=== PATIENT | female | born 1965 | race Caucasian/White ===

== ENCOUNTER 2018-09-27 19:11 | Emergency (ER) | payer SELFPAY ==
[2018-09-27 20:13] LABS: Absolute Lymphocytes (CBC) 1.4 K/uL (0.7-4.9); Absolute Monocytes 0.6 K/uL (0.1-1.3); Absolute Neutrophil 4.2 K/uL (1.8-8.0); Hematocrit 42.9 % (36.0-45.0); Lymphocytes % 22.2 % (15.3-44.8); MCH 30.3 pg (27.0-35.0); MCV 89.1 fL (80-100); MPV 8.3 fL (7.6-11.3); RBC Red Blood Cell Count 4.81 M/uL (3.86-4.86)
[2018-09-27 20:30] LABS: Albumin 3.7 g/dL (3.4-5.0); Bilirubin Total 0.2 mg/dL (0.2-1.0); Magnesium 2.3 mg/dL (1.8-2.4); Potassium 3.6 mmol/L (3.5-5.1); Protein, Total 7.6 g/dL (6.4-8.2)
[2018-09-27 20:54] LABS: Urine Blood NEGATIVE (NEG); Urine Glucose NEGATIVE (NEG); Urine Protein NEGATIVE (NEG); Urine Specific Gravity 1.015 (1.005-1.030); Urine pH 5.5 (5.0-7.0)
--- NOTE | 2018-09-27 22:47 | EDPHYS ---
Physician Documentation [facility] Name: Merry Castillo Age: 52 yrs Sex: Female : 1965 Arrival Date: 09/27/2018 Time: 19:13 Bed 19 Private MD: ED Physician Vasu Rosas HPI: 09/27 19:55 This 52 yrs old Female presents to ER via Ambulatory with complaints of ps1 Numbness, Dizziness. 19:56 Patient lives in [place] and is a NIDDM presenting with paresthesias in upper and lower ps1 extremities bilaterally. Has a history of peripheral neuropathy. Onset was this morning upon awakening. Has not followed up with PCP in about a year and is taking metformin bid, however does not check BS and has not had A1c in over a year. Has increased DM symptoms. Additionally MJ use, current and recent 2/2 aroma in room. . 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 - Social history:: Smoking status: Patient uses tobacco products, smokes one pack cigarettes per day. Patient uses alcohol, only on a social basis. street drugs, marijuana. - Ebola Screening: : Patient negative for fever greater than or equal to 101.5 degrees Fahrenheit, and additional compatible Ebola Virus Disease symptoms Patient denies exposure to infectious person Patient denies travel to an Ebola-affected area in the 21 days before illness onset No symptoms or risks identified at this time. ROS: 19:56 Constitutional: Negative for fever, chills, and weight loss, Eyes: Negative for injury, ps1 pain, redness, and discharge, Cardiovascular: Negative for chest pain, palpitations, and edema, Respiratory: Negative for shortness of breath, cough, wheezing, and pleuritic chest pain, Abdomen/GI: Negative for abdominal pain, nausea, vomiting, diarrhea, and constipation, : Negative for injury, bleeding, discharge, and swelling, MS/Extremity: Negative for injury and deformity, Skin: Negative for injury, rash, and discoloration. 19:56 Neuro: Positive for paresthesia. Exam: 19:56 Constitutional: This is a well developed, well nourished patient who is awake, alert, ps1 and in no acute distress. Head/Face: Normocephalic, atraumatic. Eyes: Pupils equal round and reactive to light, extra-ocular motions intact. Lids and lashes normal. Conjunctiva and sclera are non-icteric and not injected. Chest/axilla: Normal chest wall appearance and motion. Nontender with no deformity. No lesions are appreciated. Cardiovascular: Regular rate and rhythm. No gallops, murmurs, or rubs. Normal PMI, no JVD. No pulse deficits. Respiratory: Lungs have equal breath sounds bilaterally, clear to auscultation and percussion. No rales, rhonchi or wheezes noted. No increased work of breathing, no retractions or nasal flaring. Abdomen/GI: Soft, non-tender, with normal bowel sounds. No distension or tympany. No guarding or rebound. No evidence of tenderness throughout. MS/ Extremity: Pulses equal, no cyanosis. Neurovascular intact. Full, normal range of motion. Neuro: Awake and alert, GCS 15, oriented to person, place, time, and situation. Cranial nerves II-XII grossly intact. Sensory grossly intact. 22:49 CT study not indicated or reported. Reason for not performing CT: not ordered. Not ps1 consistent with stroke. Vital Signs: 19:24 BP 138 / 82; Pulse 76; Resp 20; Temp 97.3; Pulse Ox 100% on R/A; Weight 61.23 kg; aj Height 5 ft. 4 in. (162.56 cm); 20:10 BP 150 / 75; Pulse 62; Resp 16 S; Pulse Ox 97% on R/A; jd3 21:08 BP 144 / 69; Pulse 89; Resp 16 S; Pulse Ox 99% on R/A; jd3 21:59 BP 125 / 62; Pulse 63; Resp 15 S; Pulse Ox 97% on R/A; jd3 22:33 BP 134 / 81; Pulse 59; Resp 16 S; Pulse Ox 97% on R/A; jd3 19:24 Body Mass Index 23.17 (61.23 kg, 162.56 cm) aj MDM: 20:15 Patient medically screened. ps1 22:44 Data reviewed: vital signs, nurses notes, lab test result(s), and as a result, I will ps1 discharge patient. ED course: patients symptoms unchanged. DOC 2.2 labs. Pending A1C. Will rx gabapentin and have patient follow up with PCP for optimization of diabetic meds and further diagnostic testing. . 09/27 19:55 Order name: CBC with Diff; Complete Time: 20:44 [facility] 09/27 19:55 Order name: CMP; Complete Time: 20:44 [facility] 09/27 19:55 Order name: Hemoglobin A1c [facility] 09/27 19:55 Order name: Magnesium; Complete Time: 20:44 ps1 09/27 20:35 Order name: Urine Dipstick--Ancillary (enter results); Complete Time: 21:22 ms 09/27 22:16 Order name: Hemoglobin A1c [facility] 09/27 19:55 Order name: Urine Dipstick-Ancillary (obtain specimen); Complete Time: 20:36 [facility] 09/27 22:32 Order name: Hemoglobin A1c EDMS Administered Medications: No medications were administered Point of Care Testing: Blood Glucose: 20:09 Blood Glucose: 128 mg/dL; jd3 Ranges: Critical Glucose Levels:Adult <50 mg/dl or >400 mg/dl <40 mg/dl or >180 mg/dl Disposition: 09/27/18 22:46 Discharged to Home. Impression: Idiopathic peripheral autonomic neuropathy. - Condition is Stable. - Discharge Instructions: Peripheral Neuropathy. - Prescriptions for gabapentin 300 mg Oral capsule - take 1 capsule by ORAL route 3 times per day for 14 days; 42 capsule. - Medication Reconciliation Form, Thank You Letter, Antibiotic Education, Prescription Opioid Use form. - Follow up: Private Physician; When: As needed; Reason: Recheck today's complaints, Continuance of care, Re-evaluation by your physician. Follow up: Emergency Department; When: As needed; Reason: Worsening of condition. - Problem is new. - Symptoms are unchanged. Signatures: Dispatcher [employer] EDTereza Almanza RN RN aj Davies, Jonathon, RN RN jd3 Singer, Phillip, MD MD ps1 Corrections: (The following items were deleted from the chart) 22:58 22:46 09/27/2018 22:46 Discharged to Home. Impression: Idiopathic peripheral autonomic jd3 neuropathy. Condition is Stable. Forms are Medication Reconciliation Form, Thank You Letter, Antibiotic Education, Prescription Opioid Use. Follow up: Private Physician; When: As needed; Reason: Recheck today's complaints, Continuance of care, Re-evaluation by your physician. Follow up: Emergency Department; When: As needed; Reason: Worsening of condition. Problem is new. Symptoms are unchanged. ps1
--- NOTE | 2018-09-27 22:47 | ER ---
Nurse's Notes [facility] Name: Merry Castillo Age: 52 yrs Sex: Female : 1965 Arrival Date: 09/27/2018 Time: 19:13 Bed 19 Private MD: Diagnosis: Idiopathic peripheral autonomic neuropathy Presentation: 09/27 19:22 Presenting complaint: Patient states: Tingling and numbness to entire body that started aj at 0730 this AM when patient woke up. Patient reports sensation is bilateral and is worse when she is "just sitting". Transition of care: patient was not received from another setting of care. Onset of symptoms was September 27, 2018. Risk Assessment: Do you want to hurt yourself or someone else? Patient reports no desire to harm self or others. Initial Sepsis Screen: Does the patient meet any 2 criteria? No. Patient's initial sepsis screen is negative. Does the patient have a suspected source of infection? No. Patient's initial sepsis screen is negative. Care prior to arrival: None. 19:22 Method Of Arrival: Ambulatory 19:22 Acuity: RADHA 4 Triage Assessment: 19:24 General: Appears in no apparent distress. comfortable, Behavior is cooperative, aj anxious. Pain: Denies pain. Neuro: Level of Consciousness is awake, alert, obeys commands, Oriented to person, place, time, situation, Appropriate for age Reports paresthesias in entire body. Respiratory: Airway is patent Respiratory effort is even, unlabored, Respiratory pattern is regular, symmetrical. Derm: Skin is intact, is healthy with good turgor, Skin is pink, warm \\T\\ dry. normal. Musculoskeletal: Circulation, motion, and sensation intact. Range of motion: intact in all extremities. 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 - Social history:: Smoking status: Patient uses tobacco products, smokes one pack cigarettes per day. Patient uses alcohol, only on a social basis. street drugs, marijuana. - Ebola Screening: : Patient negative for fever greater than or equal to 101.5 degrees Fahrenheit, and additional compatible Ebola Virus Disease symptoms Patient denies exposure to infectious person Patient denies travel to an Ebola-affected area in the 21 days before illness onset No symptoms or risks identified at this time. Screenin:41 Abuse screen: Denies threats or abuse. Nutritional screening: No deficits noted. jd3 Tuberculosis screening: No symptoms or risk factors identified. Fall Risk Ambulatory Aid- None/Bed Rest/Nurse Assist (0 pts). Gait- Normal/Bed Rest/Wheelchair (0 pts) Mental Status- Oriented to own ability (0 pts). Total Peralta Fall Scale indicates No Risk (0-24 pts). Assessment: 19:35 General: Appears uncomfortable, Behavior is calm, cooperative, appropriate for age, jd3 Reports symptoms starting a week ago. Pain: Denies pain. Neuro: Level of Consciousness is awake, alert, obeys commands, Oriented to person, place, time, situation, Plan Rep are equal bilaterally Moves all extremities. Full function Gait is steady, Speech is normal, Facial symmetry appears normal, Pupils are PERRLA, Intact Reports dizziness, numbness in left hand and right leg. Cardiovascular: Capillary refill < 3 seconds Patient's skin is warm and dry. Respiratory: Airway is patent Respiratory effort is even, unlabored, Respiratory pattern is regular, symmetrical, Denies shortness of breath. GI: Abdomen is round non-distended, Patient currently denies nausea, vomiting. : No signs and/or symptoms were reported regarding the genitourinary system. EENT: No signs and/or symptoms were reported regarding the EENT system. Derm: Skin is intact, Skin is dry, Skin is normal, Skin temperature is warm. Musculoskeletal: Circulation, motion, and sensation intact. Range of motion: intact in all extremities. 20:10 Reassessment: Patient appears in no apparent distress at this time. No changes from jd3 previously documented assessment. Patient and/or family updated on plan of care and expected duration. Pain level reassessed. Patient is alert, oriented x 3, equal unlabored respirations, skin warm/dry/pink. 21:07 Reassessment: Patient appears in no apparent distress at this time. No changes from jd3 previously documented assessment. Patient and/or family updated on plan of care and expected duration. Pain level reassessed. Patient is alert, oriented x 3, equal unlabored respirations, skin warm/dry/pink. 21:59 Reassessment: Patient appears in no apparent distress at this time. No changes from jd3 previously documented assessment. Patient and/or family updated on plan of care and expected duration. Pain level reassessed. Patient is alert, oriented x 3, equal unlabored respirations, skin warm/dry/pink. 22:33 Reassessment: Patient appears in no apparent distress at this time. No changes from jd3 previously documented assessment. Patient and/or family updated on plan of care and expected duration. Pain level reassessed. Patient is alert, oriented x 3, equal unlabored respirations, skin warm/dry/pink. 22:58 Reassessment: Patient appears in no apparent distress at this time. No changes from jd3 previously documented assessment. Patient and/or family updated on plan of care and expected duration. Pain level reassessed. Patient is alert, oriented x 3, equal unlabored respirations, skin warm/dry/pink. reported understanding of discharge instructions, even and steady gait upon discharge. Vital Signs: 19:24 BP 138 / 82; Pulse 76; Resp 20; Temp 97.3; Pulse Ox 100% on R/A; Weight 61.23 kg; aj Height 5 ft. 4 in. (162.56 cm); 20:10 BP 150 / 75; Pulse 62; Resp 16 S; Pulse Ox 97% on R/A; jd3 21:08 BP 144 / 69; Pulse 89; Resp 16 S; Pulse Ox 99% on R/A; jd3 21:59 BP 125 / 62; Pulse 63; Resp 15 S; Pulse Ox 97% on R/A; jd3 22:33 BP 134 / 81; Pulse 59; Resp 16 S; Pulse Ox 97% on R/A; jd3 19:24 Body Mass Index 23.17 (61.23 kg, 162.56 cm) aj ED Course: 19:13 Patient arrived in ED. ds1 19:23 Triage completed. aj 19:24 Arm band placed on left wrist. Patient placed in an exam room. aj 19:28 Vasu Rosas MD is Attending Physician. ps1 19:41 Solis Luz RN is Primary Nurse. jd3 19:45 Patient has correct armband on for positive identification. Bed in low position. Call jd3 light in reach. Side rails up X 1. Adult w/ patient. 20:11 Inserted saline lock: 20 gauge in right antecubital area, using aseptic technique. jd3 [facility] 22:[facility] No provider procedures requiring assistance completed. IV discontinued, intact, jd3 bleeding controlled, No redness/swelling at site. Pressure dressing applied. Administered Medications: No medications were administered Point of Care Testing: Blood Glucose: 20:09 Blood Glucose: 128 mg/dL; jd3 Ranges: Outcome: 22:46 Discharge ordered by . ps1 22:54 Discharged to home ambulatory, with family. jd3 22:54 Condition: stable 22:54 Discharge instructions given to patient, Instructed on discharge instructions, follow up and referral plans. medication usage, Demonstrated understanding of instructions, follow-up care, medications, Prescriptions given X 1. 22:58 Patient left the ED. jd3 Signatures: Tereza Shaikh RN RN aj Sanford, Demi ds1 Solis Luz RN RN jd3 Singer, Phillip, MD MD ps1
== END 2018-09-27 22:58 | disposition home or self-care (01) ==
LOC: ER 19:11
DX: G90.09 Other idiopathic peripheral autonomic neuropathy (principal); I10 Essential (primary) hypertension; E11.9 Type 2 diabetes mellitus without complications; F17.210 Nicotine dependence, cigarettes, uncomplicated; Z88.0 Allergy status to penicillin; Z88.5 Allergy status to narcotic agent
CPT/HCPCS: 36415; 80053; 81003; 82962; 83036; 83735; 85025; 99283